=== PATIENT | male | born 1975 | race Caucasian/White ===

== ENCOUNTER 2019-04-30 18:25 | Inpatient (IN) | payer BC, MEDICAID ==
[2019-04-30] MEDS ORDERED: Sodium Chloride 0.9% 1,000 ML IV ONE (18:52)
--- NOTE | 2019-04-30 18:52 | EDM.PDOC ---
ED HPI GENERAL MEDICAL PROBLEM - General Chief Complaint: Abdominal Pain Stated Complaint: ABDOMINAL PAIN AND BACK PAIN Time Seen by Provider: 04/30/19 18:42 Source of Information: Reports: Patient History Limitations: Reports: No Limitations - History of Present Illness INITIAL COMMENTS - FREE TEXT/NARRATIVE: 44-year-old male presents for evaluation and treatment of abdominal pain. Patient reports he had similar episodes about a month ago and about 2 weeks ago after eating. He states that this current episode started yesterday and has been constant since. States that it waxes and wanes a at its worse it is a 10 out of 10. He has tried Pepto-Bismol and docusate but this has not relieved his symptoms. He reports associated symptoms of nausea and vomiting. States that the pain is worse with movement. Reports his last bowel movement was 2 days ago. Reports he is not passing gas. States the pain is radiating through him to his back. He denies any fevers, chest pain, shortness of breath, dysuria or hematuria. No intake in over 24 hours. Reports he's never had a colonoscopy. Previous abdominal surgeries including appendectomy. Upper Abdomen Pain Score (Numeric/FACES): 6 - Related Data Allergies Allergy/AdvReac Type Severity Reaction Status Date / Time hydrocodone Allergy Mild Itching Verified 04/30/19 18:34 Home Meds: Home Meds . [No Known Home Meds] 04/30/19 [History] Past Medical History - Past Surgical History GI Surgical History: Reports: Appendectomy Musculoskeletal Surgical History: Reports: Hip Replacement Social & Family History - Tobacco Use Smoking Status *Q: Never Smoker - Caffeine Use Caffeine Use: Reports: Coffee - Recreational Drug Use Recreational Drug Use: No ED ROS GENERAL - Review of Systems Review Of Systems: See Below Constitutional: Reports: Chills, Diaphoresis. Denies: Fever Respiratory: Denies: Shortness of Breath Cardiovascular: Denies: Chest Pain GI/Abdominal: Reports: Abdominal Pain (greatest in the epigstric but has pain throughtout hte entire abdomen), Constipation (no bowel movement x 2 days), Decreased Appetite, Nausea, Vomiting. Denies: Flatus : Reports: No Symptoms Musculoskeletal: Reports: Back Pain (pain radiates through abdomen to back) ED EXAM, GI/ABD - Physical Exam Exam: See Below Exam Limited By: No Limitations General Appearance: Alert, WD/WN, Mild Distress Throat/Mouth: Normal Inspection, Normal Voice, No Airway Compromise Respiratory/Chest: No Respiratory Distress, Lungs Clear, Normal Breath Sounds Cardiovascular: Normal Peripheral Pulses, Regular Rate, Rhythm, No Murmur GI/Abdominal Exam: Guarding, Rigid, Tender (throughout the entire abdomen), Other (tympanic sounding bowel sounds). No: Rebound Neurological: Alert, Oriented, Normal Cognition Psychiatric: Normal Affect, Normal Mood Skin Exam: Warm, Dry, Normal Color EKG INTERPRETATION EKG Date: 04/30/19 Time: 19:05 Rhythm: NSR Rate (Beats/Min): 73 [place]: Normal P-Wave: Present QRS: Normal ST-T: Normal QT: Normal EKG Interpretation Comments: NSR at 73 bpm. N AVb. NO AE. J-point elevation anterior leads- unlikely ischemia. No T wave inversion. Normal transition. No LAD/ RAD. No LVH/RVh. No IVCD. QTc within normal limits with a QTc of 417. Reviewed by myself and Dr. Jarrett. Course - Vital Signs Last Recorded V/S: Last Vital Signs Temp 98.6 F 04/30/19 22:48 Pulse 59 L 04/30/19 22:48 Resp 16 04/30/19 22:48 BP 131/80 04/30/19 22:48 Pulse Ox 94 L 04/30/19 22:48 - Orders/Labs/Meds Orders: Active Orders 24 hr Category Date Time Status Patient Status [ADT] Routine ADT 04/30/19 22:26 Active Peripheral IV Care [RC] Q2HR Care 04/30/19 18:54 Active Chest 1V-Tube Placement Chk NC [CR] Stat Exams 04/30/19 21:37 Taken UA W/MICROSCOPIC [URIN] Stat Lab 04/30/19 18:54 Ordered Sodium Chloride 0.9% [Saline Flush] Med 04/30/19 18:54 Active 10 ml FLUSH ASDIRECTED PRN Nasogastric Orogastric Tube Insertion [OM.PC] Routine Oth 04/30/19 21:37 Ordered Peripheral IV Insertion Adult [OM.PC] Routine Oth 04/30/19 18:52 Ordered Medication Orders Hydromorphone HCl (Dilaudid) 0.5 mg IVPUSH Q2H PRN PRN Reason: Pain Last Admin: 05/01/19 00:12 Dose: 0.5 mg Dextrose/Lactated Ringer's (Dextrose 5%-Lactated Ringers) 1,000 mls @ 150 mls/ hr IV ASDIRECTED MARISELA Last Admin: 05/01/19 00:16 Dose: 150 mls/hr Ondansetron HCl (Zofran) 4 mg IVPUSH Q4HR PRN PRN Reason: Nausea/Vomiting Sodium Chloride (Saline Flush) 10 ml FLUSH ASDIRECTED PRN PRN Reason: Keep Vein Open Last Admin: 04/30/19 20:39 Dose: 10 ml Admin: 04/30/19 19:18 Dose: 10 ml Labs: Laboratory Tests 04/30/19 04/30/19 Range/Units 18:45 18:45 WBC 15.88 H (4.23-9.07) K/mm3 RBC 5.82 (4.63-6.08) M/mm3 Hgb 17.4 (13.7-17.5) gm/L Hct 51.5 H (40.1-51.0) % MCV 88.5 (79.0-92.2) fl MCH 29.9 (25.7-32.2) pg MCHC 33.8 (32.2-35.5) g/dl RDW Std Deviation 43.2 (35.1-43.9) fL Plt Count 258 (163-337) K/mm3 MPV 10.4 (9.4-12.3) fl Neutrophils % (Manual) 88 H (40-60) % Band Neutrophils % 0 (0-10) % Lymphocytes % (Manual) 9 L (20-40) % Atypical Lymphs % 0 % Monocytes % (Manual) 3 (2-10) % Eosinophils % (Manual) 0 L (0.8-7.0) % Basophils % (Manual) 0 L (0.2-1.2) Platelet Estimate Adequate RBC Morph Comment Normal Sodium 140 (136-145) mEq/L Potassium 4.1 (3.5-5.1) mEq/L Chloride 102 (98-107) mEq/L Carbon Dioxide 29 (21-32) mEq/L Anion Gap 13.1 (5-15) BUN 25 H (7-18) mg/dL Creatinine 1.4 H (0.7-1.3) mg/dL Est Cr Clr Drug Dosing 76.89 mL/min Estimated GFR (MDRD) 55 (>60) mL/min BUN/Creatinine Ratio 17.9 (14-18) Glucose 153 H (74-106) mg/dL Calcium 10.8 H (8.5-10.1) mg/dL Total Bilirubin 0.6 (0.2-1.0) mg/dL AST 14 L (15-37) U/L ALT 31 (16-63) U/L Alkaline Phosphatase 75 (46-116) U/L Troponin I 0.041 (0.00-0.056) ng/mL C-Reactive Protein < 0.2 (<1.0) mg/dL Total Protein 7.8 (6.4-8.2) g/dl Albumin 4.2 (3.4-5.0) g/dl Globulin 3.6 gm/dL Albumin/Globulin Ratio 1.2 (1-2) Lipase 104 (73-393) U/L Meds: Medications Generic Name Dose Route Start Last Admin Trade Name Freq PRN Reason Stop Dose Admin Hydromorphone HCl 0.5 mg 04/30/19 23:14 05/01/19 00:12 Dilaudid IVPUSH 0.5 mg Q2H PRN Administration Pain Dextrose/Lactated Ringer's 1,000 mls @ 150 mls/hr 04/30/19 23:15 05/01/19 00: 16 Dextrose 5%-Lactated Ringers IV 150 mls/hr ASDIRECTED MARISELA Administration Ondansetron HCl 4 mg 04/30/19 23:14 Zofran IVPUSH Q4HR PRN Nausea/Vomiting Sodium Chloride 10 ml 04/30/19 18:54 04/30/19 20:39 Saline Flush FLUSH 10 ml ASDIRECTED PRN Administration Keep Vein Open Discontinued Medications Generic Name Dose Route Start Last Admin Trade Name Freq PRN Reason Stop Dose Admin Diatrizoate Meglum/Diatrizoate Sod 60 ml 04/30/19 19:31 04/30/19 20:39 Gastrografin 37% PO 04/30/19 19:32 60 ml ONETIME ONE Administration Diphenhydramine HCl 25 mg 04/30/19 18:57 04/30/19 19:11 Benadryl IVPUSH 04/30/19 18:58 25 mg ONETIME ONE Administration Hydromorphone HCl 0.5 mg 04/30/19 18:57 04/30/19 19:11 Dilaudid IVPUSH 04/30/19 18:58 0.5 mg ONETIME ONE Administration Hydromorphone HCl 0.5 mg 04/30/19 21:06 04/30/19 21:21 Dilaudid IVPUSH 04/30/19 21:07 0.5 mg ONETIME ONE Administration Sodium Chloride 1,000 mls @ 999 mls/hr 04/30/19 18:52 04/30/19 19:10 Normal Saline IV 04/30/19 19:52 999 mls/hr ONETIME ONE Administration Lactated Ringer's 1,000 mls @ 999 mls/hr 04/30/19 21:06 04/30/19 21:20 Ringers, Lactated IV 04/30/19 22:06 999 mls/hr .BOLUS ONE Administration Iohexol 100 ml 04/30/19 19:31 04/30/19 20:39 Omnipaque-300 IVPUSH 04/30/19 19:32 100 ml ONETIME ONE Administration Ondansetron HCl 4 mg 04/30/19 19:14 04/30/19 19:17 Zofran IVPUSH 04/30/19 19:15 4 mg ONETIME ONE Administration Ondansetron HCl Confirm 04/30/19 19:16 04/30/19 19:26 Zofran Administered 04/30/19 19:17 Not Given Dose 4 mg .ROUTE .STK-MED ONE Ondansetron HCl 4 mg 04/30/19 21:06 04/30/19 21:20 Zofran IVPUSH 04/30/19 21:07 4 mg ONETIME ONE Administration - Radiology Interpretation Free Text/Narrative:: CT abdomen and pelvis Technique: Multiple axial sections were obtained from from above the diaphragm inferiorly through the pubic symphysis. Intravenous and oral contrast was utilized. Delayed images were also obtained through the abdomen and pelvis. Comparison: No prior abdominal imaging. Findings: Mild atelectasis is noted within both lung bases. Small amount of fluid is seen around the liver. Liver contains no focal abnormality. Spleen appears within normal limits. Adrenal glands show no nodule. Pancreas is within normal limits. Kidneys show symmetric contrast enhancement without hydronephrosis or mass. Aorta shows no aneurysm. No retroperitoneal adenopathy is seen. Dilated stomach containing contrast is seen. Dilated jejunal loops are seen. Transition point is within the upper pelvis. Etiology for this small bowel obstruction not seen on this exam. Stool is noted within the distal jejunal loops. Small amount of ascites is also seen within the left side of the abdomen. Gallbladder contains no calcified gallstones. No pelvic mass or adenopathy is seen. Delayed images shows contrast within the ureters and within the bladder. Artifact is noted from left hip prosthesis. Impression: 1. Findings compatible with mid small bowel obstruction within the approximate distal jejunum. Stool is seen within the distal day jejunum. Transition point within the upper pelvis. Etiology for this small bowel obstruction is not seen. 2. Mild amount of ascites likely reactive from the small bowel obstruction. 3. Other incidental findings. - Re-Assessments/Exams Free Text/Narrative Re-Assessment/Exam: 04/30/19 21:07 Checked on patient. Reports his pain is improved, primary parent complains of a bandlike pain across his lower abdomen at this point. He'll has some nausea. He declined anything more for pain and nausea at this time. Awaiting radiology report 04/30/19 22:30 Reviewed the labs and imaging with the patient. Spoke with Dr. Degroot, recommended NG tube, fluids and pain management. Would see in the morning. Asks to admit to Dr. Horne. Spoke with Dr. Horne who agrees to the admission. Zofran 4mg q4 prn nausea, dilaudid 0.5mg iV q2 hrs prn pain, D5/LR at 150 per hour ordered. Departure - Departure Time of Disposition: 22:20 Disposition: Admitted As Inpatient 67 Condition: Fair Clinical Impression: Small bowel obstruction - Discharge Information *PRESCRIPTION DRUG MONITORING PROGRAM REVIEWED*: No *COPY OF PRESCRIPTION DRUG MONITORING REPORT IN PATIENT MARICRUZ: No - My Orders Last 24 Hours: My Active Orders 04/30/19 18:52 Peripheral IV Insertion Adult [OM.PC] Routine 04/30/19 18:54 Peripheral IV Care [RC] Q2HR UA W/MICROSCOPIC [URIN] Stat Sodium Chloride 0.9% [Saline Flush] 10 ml FLUSH ASDIRECTED PRN 04/30/19 21:37 Chest 1V-Tube Placement Chk NC [CR] Stat Nasogastric Orogastric Tube Insertion [OM.PC] Routine 04/30/19 22:26 Patient Status [ADT] Routine - Assessment/Plan Last 24 Hours: My Active Orders 04/30/19 18:52 Peripheral IV Insertion Adult [OM.PC] Routine 04/30/19 18:54 Peripheral IV Care [RC] Q2HR UA W/MICROSCOPIC [URIN] Stat Sodium Chloride 0.9% [Saline Flush] 10 ml FLUSH ASDIRECTED PRN 04/30/19 21:37 Chest 1V-Tube Placement Chk NC [CR] Stat Nasogastric Orogastric Tube Insertion [OM.PC] Routine 04/30/19 22:26 Patient Status [ADT] Routine
[2019-04-30] MEDS ORDERED: diphenhydrAMINE 50 MG/ML SDV IVPUSH ONE (18:57)
[2019-04-30] MEDS ORDERED: HYDROmorphone 0.5 MG/0.5 ML Syringe IVPUSH ONE ×2 (18:57→21:06)
[2019-04-30] MEDS ORDERED: Ondansetron 4 MG/2 ML SDV IVPUSH ONE ×2 (19:14→21:06)
[2019-04-30] MEDS ORDERED: Ondansetron 4 MG/2 ML SDV ONE (19:16)
[2019-04-30] MEDS: Sodium Chloride 0.9% 10 ML Syringe FLUSH PRN ×2 (19:18→20:39)
[2019-04-30] MEDS ORDERED: Diatrizoate Meglumine/Diatrizoate Sodium 37% 120 ML Bottle PO ONE (19:31)
[2019-04-30] MEDS ORDERED: Iohexol 647 MG/ML 100 ML Bottle IVPUSH ONE (19:31)
[2019-04-30] MEDS ORDERED: Lactated Ringers 1,000 ML IV ONE (21:06)
--- NOTE | 2019-04-30 21:07 | CT ---
CT abdomen and pelvis Technique: Multiple axial sections were obtained from from above the diaphragm inferiorly through the pubic symphysis. Intravenous and oral contrast was utilized. Delayed images were also obtained through the abdomen and pelvis. Comparison: No prior abdominal imaging. Findings: Mild atelectasis is noted within both lung bases. Small amount of fluid is seen around the liver. Liver contains no focal abnormality. Spleen appears within normal limits. Adrenal glands show no nodule. Pancreas is within normal limits. Kidneys show symmetric contrast enhancement without hydronephrosis or mass. Aorta shows no aneurysm. No retroperitoneal adenopathy is seen. Dilated stomach containing contrast is seen. Dilated jejunal loops are seen. Transition point is within the upper pelvis. Etiology for this small bowel obstruction not seen on this exam. Stool is noted within the distal jejunal loops. Small amount of ascites is also seen within the left side of the abdomen. Gallbladder contains no calcified gallstones. No pelvic mass or adenopathy is seen. Delayed images shows contrast within the ureters and within the bladder. Artifact is noted from left hip prosthesis. Impression: 1. Findings compatible with mid small bowel obstruction within the approximate distal jejunum. Stool is seen within the distal day jejunum. Transition point within the upper pelvis. Etiology for this small bowel obstruction is not seen. 2. Mild amount of ascites likely reactive from the small bowel obstruction. 3. Other incidental findings. Diagnostic code #5
[2019-04-30] MEDS ORDERED: HYDROmorphone 0.5 MG/0.5 ML Syringe IVPUSH PRN (23:14)
[2019-04-30] MEDS ORDERED: Ondansetron 4 MG/2 ML SDV IVPUSH PRN (23:14)
[2019-05-01] MEDS: Dextrose 5%-Lactated Ringers 1,000 ML IV SCH ×4 (00:16→21:15)
--- NOTE | 2019-05-01 06:19 | PCM.HP ---
H&P History of Present Illness - General Date of Service: 05/01/19 Admit Problem/Dx: Admission Diagnosis/Problem Admission Diagnosis/Problem Small bowel obstruction Source of Information: Patient, Old Records, Provider, RN, RN Notes Reviewed History Limitations: Reports: No Limitations - History of Present Illness Initial Comments - Free Text/Narative: Ben Elder is a 44 yo male who presented to our facility in the evening of 04/30/19 with abdominal pain. Reports he had 2 episodes of similar symptoms with one being about a month ago and the other one 2 weeks ago right after eating. He reports current episode started the day prior has been constant ever since, although it does wax and wane. Maximal pain is 10 out of 10 and it does radiate through to his back. 50s tried Pepto-Bismol and docusate but that has not helped. He's also been nauseous and has vomited. Pain is worse with movement. Reports last bowel movement was 2 days prior he has not been passing gas. denies any fevers, chest pain, short of breath, dysuria, hematuria. Has not had any intake in the past 24 hours. He has had an appendectomy but he has never had a colonoscopy. In the ED temperature 98.6. Pulse 59. Respirations 16. Blood pressure 131/ 80. Pulse ox 94%. EKG is obtained showing a sinus rhythm at 73 bpm. Labs are obtained showing a WBC elevated at 15.88. Hemoglobin 17.4. Hematocrit 51.5. He's normocytic. Platelets 258,000. Neutrophils are elevated at 80%. There is no bandemia. Sodium was 140. Potassium 4.1. Chloride 102. Carbon Dioxide 29. Anion gap is 13.1. BUN is high at 25. Creatinine 1.4. EGFR 55. Glucose is 153. Calcium 10.5. Bilirubin 0.6. AST is 14, ALT 31, alkaline phosphatase 75. Troponin is negative at 0.041. CRP is less than 0.2. Protein is 7.8. Albumin 4.2.CT of the abdomen and pelvis with contrast was obtained and interpreted by Dr. Delacruz as "1. Findings compatible with mid small bowel obstruction within the approximate distal jejunum. Stool is seen within the distal day jejunum. Transition point within the upper pelvis. Etiology for this small bowel obstruction is not seen. 2. Mild amount of ascites likely reactive from the small bowel obstruction. 3. Other incidental findings." he is given Dilaudid0.5 mg IV push for pain and Zofran for nausea. He is also given 5 mg IV push Benadryl. 2 L of fluid are initiated. Dr. Degroot, general surgeon, is consulted in the ED and recommends NG tube, fluids and pain management. NG tube is placed. He subsequently admitted to the medical floor for management of his small bowel obstruction. He carries a history of appendectomy and hip replacement. He is not on any medications. He was never a smoker. His PCP is Dr. Alvarez. He is a DNR/ DNI. Upper Abdomen Pain Score (Numeric/FACES): 6 - Related Data Allergies/Adverse Reactions: Allergies Allergy/AdvReac Type Severity Reaction Status Date / Time hydrocodone Allergy Mild Itching Verified 04/30/19 18:34 Home Medications: Home Meds . [No Known Home Meds] 04/30/19 [History] Past Medical History HEENT History: Reports: None - Infectious Disease History Infectious Disease History: Reports: Chicken Pox - Past Surgical History GI Surgical History: Reports: Appendectomy Musculoskeletal Surgical History: Reports: Hip Replacement Social & Family History - Family History Endocrine/Metabolic: Reports: Diabetes, Type I Other Endocrine/Metabolic Family History: father - Tobacco Use Smoking Status *Q: Never Smoker Second Hand Smoke Exposure: No - Caffeine Use Caffeine Use: Reports: Coffee - Recreational Drug Use Recreational Drug Use: No H&P Review of Systems - Review of Systems: Review Of Systems: See Below General: Reports: Chills, Weakness, Decreased Appetite. Denies: Fever, Malaise , Fatigue HEENT: Reports: No Symptoms. Denies: Headaches, Sore Throat Pulmonary: Reports: No Symptoms. Denies: Shortness of Breath, Wheezing, Cough, Sputum Cardiovascular: Reports: No Symptoms. Denies: Chest Pain, Palpitations, Edema Gastrointestinal: Reports: Abdominal Pain (very mild generalized but most sever in suprapubic region. ), Constipation. Denies: Diarrhea, Flatus, Hematemesis, Hematochezia, Nausea (none since yesterday), Vomiting (none since yesterday) Genitourinary: Reports: No Symptoms. Denies: Pain Musculoskeletal: Reports: No Symptoms Skin: Reports: No Symptoms Psychiatric: Reports: No Symptoms. Denies: Confusion Neurological: Reports: No Symptoms. Denies: Pre-Existing Deficit, Trouble Speaking, Difficulty Walking, Weakness, Gait Disturbance Hematologic/Lymphatic: Reports: No Symptoms Immunologic: Reports: No Symptoms Exam - Exam Exam: See Below - Vital Signs Vital Signs: Last Vital Signs Temp 98.6 F 04/30/19 22:48 Pulse 59 L 04/30/19 22:48 Resp 16 04/30/19 22:48 BP 131/80 04/30/19 22:48 Pulse Ox 94 L 04/30/19 22:48 Weight: 192 lb 11.2 oz - Exam General: Alert, Oriented, Cooperative. No: Mild Distress HEENT: Conjunctiva Clear, EACs Clear, EOMI, Hearing Intact, Mucosa Moist & [place] , Nares Patent, PERRLA Neck: Supple, Trachea Midline Lungs: Clear to Auscultation, Normal Respiratory Effort Cardiovascular: Regular Rate, Regular Rhythm GI/Abdominal Exam: Soft, No Organomegaly, No Distention, Tender (mild suprapubic ), Abnormal Bowel Sounds (hyperactive ). No: Guarding (Male) Exam: Deferred Rectal (Males) Exam: Deferred Back Exam: Normal Inspection, Full Range of Motion Extremities: Normal Inspection, Normal Range of Motion, Non-Tender, No Pedal Edema, Normal Capillary Refill Peripheral Pulses: 2+: Radial (L), Radial (R), Dorsalis Pedis (L), Dorsalis Pedis (R) Skin: Warm, Dry, Intact Neurological: Cranial Nerves Intact (Grossly ) Neuro Extensive - Mental Status: Alert, Oriented x3 - Patient Data Lab Results Last 24 hrs: Laboratory Results - last 24 hr 04/30/19 04/30/19 Range/Units 18:45 18:45 WBC 15.88 H (4.23-9.07) K/mm3 RBC 5.82 (4.63-6.08) M/mm3 Hgb 17.4 (13.7-17.5) gm/L Hct 51.5 H (40.1-51.0) % MCV 88.5 (79.0-92.2) fl MCH 29.9 (25.7-32.2) pg MCHC 33.8 (32.2-35.5) g/dl RDW Std Deviation 43.2 (35.1-43.9) fL Plt Count 258 (163-337) K/mm3 MPV 10.4 (9.4-12.3) fl Neutrophils % (Manual) 88 H (40-60) % Band Neutrophils % 0 (0-10) % Lymphocytes % (Manual) 9 L (20-40) % Atypical Lymphs % 0 % Monocytes % (Manual) 3 (2-10) % Eosinophils % (Manual) 0 L (0.8-7.0) % Basophils % (Manual) 0 L (0.2-1.2) Platelet Estimate Adequate RBC Morph Comment Normal Sodium 140 (136-145) mEq/L Potassium 4.1 (3.5-5.1) mEq/L Chloride 102 (98-107) mEq/L Carbon Dioxide 29 (21-32) mEq/L Anion Gap 13.1 (5-15) BUN 25 H (7-18) mg/dL Creatinine 1.4 H (0.7-1.3) mg/dL Est Cr Clr Drug Dosing 76.89 mL/min Estimated GFR (MDRD) 55 (>60) mL/min BUN/Creatinine Ratio 17.9 (14-18) Glucose 153 H (74-106) mg/dL Calcium 10.8 H (8.5-10.1) mg/dL Total Bilirubin 0.6 (0.2-1.0) mg/dL AST 14 L (15-37) U/L ALT 31 (16-63) U/L Alkaline Phosphatase 75 (46-116) U/L Troponin I 0.041 (0.00-0.056) ng/mL C-Reactive Protein < 0.2 (<1.0) mg/dL Total Protein 7.8 (6.4-8.2) g/dl Albumin 4.2 (3.4-5.0) g/dl Globulin 3.6 gm/dL Albumin/Globulin Ratio 1.2 (1-2) Lipase 104 (73-393) U/L Result Diagrams: 05/01/19 06:30 05/01/19 06:30 - Problem List (1) Small bowel obstruction SNOMED Code(s): 504547271 ICD Code: K56.609 - UNSP INTESTNL OBST, UNSP TO PARTIAL VERSUS COMPLETE OBST Status: Acute Current Visit: Yes Problem List Initiated/Reviewed/Updated: Yes Orders Last 24hrs: Active Orders 24 hr Category Date Time Status Patient Status [ADT] Routine ADT 04/30/19 22:26 Active NG [Gastrointestinal Tube Mgmt] [RC] ASDIRECTED Care 04/30/19 23:14 Active Notify Provider Consults [RC] ASDIRECTED Care 04/30/19 23:22 Active Peripheral IV Care [RC] Q2HR Care 04/30/19 18:54 Active Up ad Sherita [RC] ASDIRECTED Care 04/30/19 23:31 Active Vital Signs [RC] 09,15,21,03 Care 04/30/19 23:43 Active Consult to Physician [CONS] Routine Cons 05/01/19 06:00 Active Nothing Per Oral Diet [DIET] Diet 04/30/19 Dinner Active Chest 1V-Tube Placement Chk NC [CR] Stat Exams 04/30/19 21:37 Taken UA W/MICROSCOPIC [URIN] Stat Lab 04/30/19 18:54 Ordered Dextrose 5%-Lactated Ringers 1,000 ml Med 04/30/19 23:15 Active IV ASDIRECTED HYDROmorphone [Dilaudid] Med 04/30/19 23:14 Active 0.5 mg IVPUSH Q2H PRN Ondansetron [Zofran] Med 04/30/19 23:14 Active 4 mg IVPUSH Q4HR PRN Sodium Chloride 0.9% [Saline Flush] Med 04/30/19 18:54 Active 10 ml FLUSH ASDIRECTED PRN Nasogastric Orogastric Tube Insertion [OM.PC] Routine Oth 04/30/19 21:37 Ordered Peripheral IV Insertion Adult [OM.PC] Routine Oth 04/30/19 18:52 Ordered Code Status [Resuscitation Status] Routine Resus Stat 04/30/19 23:06 Ordered Medication Orders Hydromorphone HCl (Dilaudid) 0.5 mg IVPUSH Q2H PRN PRN Reason: Pain Last Admin: 05/01/19 00:12 Dose: 0.5 mg Dextrose/Lactated Ringer's (Dextrose 5%-Lactated Ringers) 1,000 mls @ 150 mls/ hr IV ASDIRECTED MARISELA Last Admin: 05/01/19 00:16 Dose: 150 mls/hr Ondansetron HCl (Zofran) 4 mg IVPUSH Q4HR PRN PRN Reason: Nausea/Vomiting Sodium Chloride (Saline Flush) 10 ml FLUSH ASDIRECTED PRN PRN Reason: Keep Vein Open Last Admin: 04/30/19 20:39 Dose: 10 ml Admin: 04/30/19 19:18 Dose: 10 ml Assessment/Plan Comment:: I/P: Acute: SBO -Reports pain that started day before coming to ED, nausea, vomiting, anorexia, constipation -Two prior episodes - one month prior and two weeks prior; both spontaneously resolved -Hx/o appendectomy; No prior colonoscopy -WBC 15.88-->11.28 -CRP >0.2 -CT scan in ED: * 1. Findings compatible with mid small bowel obstruction within the approximate distal jejunum. Stool is seen within the distal day jejunum. Transition point within the upper pelvis. Etiology for this small bowel obstruction is not seen. * 2. Mild amount of ascites likely reactive from the small bowel obstruction. * 3. Other incidental findings. -NG tube placed in ED -Dr. Degroot, general surgeon consulted in ED -Recommends removing NG tube in afternoon and advancing diet to clear liquids -Believes leukocytosis may be from dehydration -IV fluids as ordered -Pain medications as ordered -NPO until NG tube removed -Ambulate -Antiemetics for nausea Chronic: Hx/o Appendectomy Hx/o Hip replacement Plan: Admit to medical floor Other orders as indicated above Routine AM labs He is ambulatory so will hold off PT/OT for now DVT Prophylaxis: VTE score of 1 - ambulate Up add sherita Code status: DNR/DNI; PCP: Dr. Alvarez
--- NOTE | 2019-05-01 06:47 | CR ---
Chest: Frontal view of the chest was obtained. Comparison: No prior chest x-ray. Heart size and mediastinum are normal. Lungs are clear. No tubing seen to extend into the mediastinum. Small bowel obstruction is again seen. Bony structures are grossly intact. Impression: 1. No nasogastric tube is seen to extend into the mediastinum. 2. Small bowel obstruction seen within the abdomen. 3. Nothing acute seen on frontal chest x-ray. Diagnostic code #2
--- NOTE | 2019-05-01 07:20 | PCM.CONS ---
H&P History of Present Illness - General Date of Service: 05/01/19 Admit Problem/Dx: Admission Diagnosis/Problem Admission Diagnosis/Problem Small bowel obstruction Source of Information: Patient, Provider History Limitations: Reports: No Limitations - History of Present Illness Initial Comments - Free Text/Narative: The patient is a 44 y/o gentleman who presented to the ED and was diagnosed with a SBO. He reports abdominal pain that occurred 2 days ago, associated with vomiting initially. He felt generalized weakness and a subjective fever. He also reports feeling dehydrated. He had a subjective fever yesterday. Last bowel movement was 2 days ago and he denied any flatus leading up to his hospitalization. He denies any sick contacts. He denies currently having an appetite. In the ED he had laboratory evaluation and CT scan of the abdomen, which revealed elevated WBC and elevated creatinine. He had an NGT placed which immediately evacuated approximately 900cc of fluid. He has since had scant output from the NGT. He reports flatus this am. Upper Abdomen Pain Score (Numeric/FACES): 6 - Related Data Allergies/Adverse Reactions: Allergies Allergy/AdvReac Type Severity Reaction Status Date / Time hydrocodone Allergy Mild Itching Verified 04/30/19 18:34 Home Medications: Home Meds . [No Known Home Meds] 04/30/19 [History] Past Medical History HEENT History: Reports: None - Infectious Disease History Infectious Disease History: Reports: Chicken Pox - Past Surgical History GI Surgical History: Reports: Appendectomy Musculoskeletal Surgical History: Reports: Hip Replacement Social & Family History - Family History Endocrine/Metabolic: Reports: Diabetes, Type I Other Endocrine/Metabolic Family History: father - Tobacco Use Smoking Status *Q: Never Smoker Second Hand Smoke Exposure: No - Caffeine Use Caffeine Use: Reports: Coffee - Recreational Drug Use Recreational Drug Use: No H&P Review of Systems - Review of Systems: Review Of Systems: See Below General: Reports: Fever (subjective), Malaise, Weakness, Decreased Appetite HEENT: Reports: No Symptoms, Sinus Congestion Cardiovascular: Reports: No Symptoms Gastrointestinal: Reports: Abdominal Pain, Nausea, Vomiting Genitourinary: Reports: No Symptoms Musculoskeletal: Reports: No Symptoms Skin: Reports: No Symptoms Neurological: Reports: No Symptoms Hematologic/Lymphatic: Reports: No Symptoms Exam - Exam Exam: See Below - Vital Signs Vital Signs: Last Vital Signs Temp 37.0 C 04/30/19 22:48 Pulse 59 L 04/30/19 22:48 Resp 16 04/30/19 22:48 BP 131/80 04/30/19 22:48 Pulse Ox 94 L 04/30/19 22:48 Weight: 87.407 kg - Exam Quality Assessment: No: Supplemental Oxygen General: Alert, Oriented HEENT: Conjunctiva Clear, EOMI, Other (NGT in right nare) Neck: Supple Lungs: Clear to Auscultation, Normal Respiratory Effort Cardiovascular: Regular Rate, Regular Rhythm GI/Abdominal Exam: Soft, No Distention, Tender (in LUQ and hypogastric area) Extremities: Normal Inspection, No Pedal Edema Peripheral Pulses: 2+: Dorsalis Pedis (L), Dorsalis Pedis (R) Skin: Warm, Dry, Intact Neurological: Cranial Nerves Intact Neuro Extensive - Mental Status: Alert, Oriented x3, Normal Mood/Affect - Patient Data Lab Results Last 24 hrs: Laboratory Results - last 24 hr 04/30/19 04/30/19 04/30/19 Range/Units 06:35 18:45 18:45 WBC 15.88 H (4.23-9.07) K/mm3 RBC 5.82 (4.63-6.08) M/mm3 Hgb 17.4 (13.7-17.5) gm/L Hct 51.5 H (40.1-51.0) % MCV 88.5 (79.0-92.2) fl MCH 29.9 (25.7-32.2) pg MCHC 33.8 (32.2-35.5) g/dl RDW Std Deviation 43.2 (35.1-43.9) fL Plt Count 258 (163-337) K/mm3 MPV 10.4 (9.4-12.3) fl Neut % (Auto) (34.0-67.9) % Lymph % (Auto) (21.8-53.1) % [place] % (Auto) (5.3-12.2) % Eos % (Auto) (0.8-7.0) Baso % (Auto) (0.1-1.2) % Neut # (Auto) (1.78-5.38) K/mm3 Lymph # (Auto) (1.32-3.57) K/mm3 [place] # (Auto) (0.30-0.82) K/mm3 Eos # (Auto) (0.04-0.54) K/mm3 Baso # (Auto) (0.01-0.08) K/mm3 Neutrophils % (Manual) 88 H (40-60) % Band Neutrophils % 0 (0-10) % Lymphocytes % (Manual) 9 L (20-40) % Atypical Lymphs % 0 % Monocytes % (Manual) 3 (2-10) % Eosinophils % (Manual) 0 L (0.8-7.0) % Basophils % (Manual) 0 L (0.2-1.2) Platelet Estimate Adequate RBC Morph Comment Normal Sodium 140 (136-145) mEq/L Potassium 4.1 (3.5-5.1) mEq/L Chloride 102 (98-107) mEq/L Carbon Dioxide 29 (21-32) mEq/L Anion Gap 13.1 (5-15) BUN 25 H (7-18) mg/dL Creatinine 1.4 H (0.7-1.3) mg/dL Est Cr Clr Drug Dosing 76.89 mL/min Estimated GFR (MDRD) 55 (>60) mL/min BUN/Creatinine Ratio 17.9 (14-18) Glucose 153 H (74-106) mg/dL Calcium 10.8 H (8.5-10.1) mg/dL Magnesium (1.8-2.4) mg/dl Total Bilirubin 0.6 (0.2-1.0) mg/dL AST 14 L (15-37) U/L ALT 31 (16-63) U/L Alkaline Phosphatase 75 (46-116) U/L Troponin I 0.041 (0.00-0.056) ng/mL C-Reactive Protein < 0.2 (<1.0) mg/dL Total Protein 7.8 (6.4-8.2) g/dl Albumin 4.2 (3.4-5.0) g/dl Globulin 3.6 gm/dL Albumin/Globulin Ratio 1.2 (1-2) Lipase 104 (73-393) U/L Urine Color Yellow (Yellow) Urine Appearance Clear (Clear) Urine pH 6.0 (5.0-8.0) Ur Specific [place] 1.025 (1.005-1.030) Urine Protein 1+ H (Negative) Urine Glucose (UA) Negative (Negative) Urine Ketones Negative (Negative) Urine Occult Blood Negative (Negative) Urine Nitrite Negative (Negative) Urine Bilirubin 1+ H (Negative) Urine Urobilinogen 0.2 (0.2-1.0) Ur Leukocyte Esterase Negative (Negative) Urine RBC Not seen (0-5) /hpf Urine WBC Not seen (0-5) /hpf Ur Squamous Epith Cells Not seen (0-5) /hpf Urine Bacteria Not seen (FEW) /hpf Urine Mucus Not seen (FEW) /hpf 05/01/19 05/01/19 Range/Units 06:30 06:30 WBC 11.28 H (4.23-9.07) K/mm3 RBC 4.83 (4.63-6.08) M/mm3 Hgb 14.5 D (13.7-17.5) gm/L Hct 43.8 (40.1-51.0) % MCV 90.7 (79.0-92.2) fl MCH 30.0 (25.7-32.2) pg MCHC 33.1 (32.2-35.5) g/dl RDW Std Deviation 44.8 H (35.1-43.9) fL Plt Count 202 (163-337) K/mm3 MPV 10.1 (9.4-12.3) fl Neut % (Auto) 75.3 H (34.0-67.9) % Lymph % (Auto) 14.5 L (21.8-53.1) % [place] % (Auto) 8.2 (5.3-12.2) % Eos % (Auto) 1.5 (0.8-7.0) Baso % (Auto) 0.4 (0.1-1.2) % Neut # (Auto) 8.50 H (1.78-5.38) K/mm3 Lymph # (Auto) 1.63 (1.32-3.57) K/mm3 [place] # (Auto) 0.93 H (0.30-0.82) K/mm3 Eos # (Auto) 0.17 (0.04-0.54) K/mm3 Baso # (Auto) 0.04 (0.01-0.08) K/mm3 Neutrophils % (Manual) (40-60) % Band Neutrophils % (0-10) % Lymphocytes % (Manual) (20-40) % Atypical Lymphs % % Monocytes % (Manual) (2-10) % Eosinophils % (Manual) (0.8-7.0) % Basophils % (Manual) (0.2-1.2) Platelet Estimate RBC Morph Comment Sodium 140 (136-145) mEq/L Potassium 4.2 (3.5-5.1) mEq/L Chloride 105 (98-107) mEq/L Carbon Dioxide 28 (21-32) mEq/L Anion Gap 11.2 (5-15) BUN 19 H (7-18) mg/dL Creatinine 1.0 (0.7-1.3) mg/dL Est Cr Clr Drug Dosing 107.64 mL/min Estimated GFR (MDRD) > 60 (>60) mL/min BUN/Creatinine Ratio 19.0 H (14-18) Glucose 121 H (74-106) mg/dL Calcium 8.7 D (8.5-10.1) mg/dL Magnesium 1.8 (1.8-2.4) mg/dl Total Bilirubin (0.2-1.0) mg/dL AST (15-37) U/L ALT (16-63) U/L Alkaline Phosphatase (46-116) U/L Troponin I (0.00-0.056) ng/mL C-Reactive Protein (<1.0) mg/dL Total Protein (6.4-8.2) g/dl Albumin (3.4-5.0) g/dl Globulin gm/dL Albumin/Globulin Ratio (1-2) Lipase (73-393) U/L Urine Color (Yellow) Urine Appearance (Clear) Urine pH (5.0-8.0) Ur Specific [place] (1.005-1.030) Urine Protein (Negative) Urine Glucose (UA) (Negative) Urine Ketones (Negative) Urine Occult Blood (Negative) Urine Nitrite (Negative) Urine Bilirubin (Negative) Urine Urobilinogen (0.2-1.0) Ur Leukocyte Esterase (Negative) Urine RBC (0-5) /hpf Urine WBC (0-5) /hpf Ur Squamous Epith Cells (0-5) /hpf Urine Bacteria (FEW) /hpf Urine Mucus (FEW) /hpf Result Diagrams: 05/01/19 06:30 05/01/19 06:30 Consult PN Assessment/Plan (1) Small bowel obstruction SNOMED Code(s): 294747727 Code(s): K56.609 - UNSP INTESTNL OBST, UNSP TO PARTIAL VERSUS COMPLETE OBST Current Visit: Yes Problem List Initiated/Reviewed/Updated: Yes My Orders Last 24 Hours: 44 y/o gentleman with SBO, likely due to adhesive disease. SBO resolving - continue NGT decompression for a few more hours until pt subjectively feels better - encourage ambulation - may consider d/c NGT this afternoon with trial of clears. May advance diet thereafter - IVF until taking adequate PO - patient may need early colonoscopy if he has a repeated episode of SBO No current surgical indication and patient is improving. Will sign off. Please call with any worrisome change in patient condition or new surgical complaint. Erin Mann MD General surgery
[2019-05-02] MEDS: Dextrose 5%-Lactated Ringers 1,000 ML IV SCH (05:20)
[2019-05-02] MEDS ORDERED: Magnesium Oxide 400 MG Tab PO ONE (10:26)
--- NOTE | 2019-05-02 11:19 | PCM.DCSUM1 ---
Discharge Summary - Hospital Course Free Text/Narrative:: Ben Elder is a 44 yo male who presented to our facility in the evening of 04/30/19 with abdominal pain. Reports he had 2 episodes of similar symptoms with one being about a month ago and the other one 2 weeks ago right after eating. He reports current episode started the day prior has been constant ever since, although it does wax and wane. Maximal pain is 10 out of 10 and it does radiate through to his back. 50s tried Pepto-Bismol and docusate but that has not helped. He's also been nauseous and has vomited. Pain is worse with movement. Reports last bowel movement was 2 days prior he has not been passing gas. denies any fevers, chest pain, short of breath, dysuria, hematuria. Has not had any intake in the past 24 hours. He has had an appendectomy but he has never had a colonoscopy. In the ED temperature 98.6. Pulse 59. Respirations 16. Blood pressure 131/ 80. Pulse ox 94%. EKG is obtained showing a sinus rhythm at 73 bpm. Labs are obtained showing a WBC elevated at 15.88. Hemoglobin 17.4. Hematocrit 51.5. He's normocytic. Platelets 258,000. Neutrophils are elevated at 80%. There is no bandemia. Sodium was 140. Potassium 4.1. Chloride 102. Carbon Dioxide 29. Anion gap is 13.1. BUN is high at 25. Creatinine 1.4. EGFR 55. Glucose is 153. Calcium 10.5. Bilirubin 0.6. AST is 14, ALT 31, alkaline phosphatase 75. Troponin is negative at 0.041. CRP is less than 0.2. Protein is 7.8. Albumin 4.2.CT of the abdomen and pelvis with contrast was obtained and interpreted by Dr. Delacruz as "1. Findings compatible with mid small bowel obstruction within the approximate distal jejunum. Stool is seen within the distal day jejunum. Transition point within the upper pelvis. Etiology for this small bowel obstruction is not seen. 2. Mild amount of ascites likely reactive from the small bowel obstruction. 3. Other incidental findings." he is given Dilaudid0.5 mg IV push for pain and Zofran for nausea. He is also given 5 mg IV push Benadryl. 2 L of fluid are initiated. Dr. Degroot, general surgeon, is consulted in the ED and recommends NG tube, fluids and pain management. NG tube is placed. He subsequently admitted to the medical floor for management of his small bowel obstruction. He carries a history of appendectomy and hip replacement. He is not on any medications. He was never a smoker. His PCP is Dr. Alvarez. 05/02/2019, no pain, tolerates regular diet, beig discharged in good condition with recommendations in the instructions section. Diagnosis: Stroke: No - Discharge Data Discharge Date: 05/02/19 Discharge Disposition: Home, Self-Care 01 Condition: Good - Discharge Diagnosis/Problem(s) (1) Small bowel obstruction SNOMED Code(s): 086485649 ICD Code: K56.609 - UNSP INTESTNL OBST, UNSP TO PARTIAL VERSUS COMPLETE OBST Status: Acute Current Visit: Yes - Patient Summary/Data Consults: Consultations 05/01/19 06:00 Consult to Physician [CONS] Routine - Discharge Plan *PRESCRIPTION DRUG MONITORING PROGRAM REVIEWED*: No *COPY OF PRESCRIPTION DRUG MONITORING REPORT IN PATIENT MARICRUZ: No Home Medications: Home Meds . [No Known Home Meds] 04/30/19 [History] Forms: ED Department Discharge Referrals: Francois Alvarez MD [Primary Care Provider] - - Discharge Summary/Plan Comment DC Time >30 min.: No - Patient Data Vitals - Most Recent: Last Vital Signs Temp 98.6 F 05/02/19 04:43 Pulse 53 L 05/02/19 04:43 Resp 16 05/02/19 04:43 BP 115/84 05/02/19 04:43 Pulse Ox 97 05/02/19 04:43 Weight - Most Recent: 196 lb 1.6 oz I&O - Last 24 hours: Intake & Output 05/01/19 05/02/19 05/02/19 19:59 03:59 11:59 Intake Total 2920 2572 Output Total 1300 450 Balance 1620 2122 Lab Results - Last 24 hrs: Laboratory Results - last 24 hr 05/02/19 05/02/19 Range/Units 04:40 04:40 WBC 5.33 (4.23-9.07) K/mm3 RBC 4.31 L (4.63-6.08) M/mm3 Hgb 12.8 L D (13.7-17.5) gm/L Hct 39.6 L (40.1-51.0) % MCV 91.9 (79.0-92.2) fl MCH 29.7 (25.7-32.2) pg MCHC 32.3 (32.2-35.5) g/dl RDW Std Deviation 42.8 (35.1-43.9) fL Plt Count 155 L (163-337) K/mm3 MPV 10.4 (9.4-12.3) fl Neut % (Auto) 52.9 (34.0-67.9) % Lymph % (Auto) 31.1 (21.8-53.1) % [place] % (Auto) 8.6 (5.3-12.2) % Eos % (Auto) 6.4 (0.8-7.0) Baso % (Auto) 0.8 (0.1-1.2) % Neut # (Auto) 2.82 (1.78-5.38) K/mm3 Lymph # (Auto) 1.66 (1.32-3.57) K/mm3 [place] # (Auto) 0.46 (0.30-0.82) K/mm3 Eos # (Auto) 0.34 (0.04-0.54) K/mm3 Baso # (Auto) 0.04 (0.01-0.08) K/mm3 Sodium 140 (136-145) mEq/L Potassium 4.3 (3.5-5.1) mEq/L Chloride 105 (98-107) mEq/L Carbon Dioxide 30 (21-32) mEq/L Anion Gap 9.3 (5-15) BUN 13 (7-18) mg/dL Creatinine 0.9 (0.7-1.3) mg/dL Est Cr Clr Drug Dosing 119.60 mL/min Estimated GFR (MDRD) > 60 (>60) mL/min BUN/Creatinine Ratio 14.4 (14-18) Glucose 101 (74-106) mg/dL Calcium 8.4 L (8.5-10.1) mg/dL Magnesium 1.7 L (1.8-2.4) mg/dl Med Orders - Current: Current Medications Hydromorphone HCl (Dilaudid) 0.5 mg IVPUSH Q2H PRN PRN Reason: Pain Last Admin: 05/01/19 00:12 Dose: 0.5 mg Ondansetron HCl (Zofran) 4 mg IVPUSH Q4HR PRN PRN Reason: Nausea/Vomiting Sodium Chloride (Saline Flush) 10 ml FLUSH ASDIRECTED PRN PRN Reason: Keep Vein Open Last Admin: 04/30/19 20:39 Dose: 10 ml Discontinued Medications Diatrizoate Meglum/Diatrizoate Sod (Gastrografin 37%) 60 ml PO ONETIME ONE Stop: 04/30/19 19:32 Last Admin: 04/30/19 20:39 Dose: 60 ml Diphenhydramine HCl (Benadryl) 25 mg IVPUSH ONETIME ONE Stop: 04/30/19 18:58 Last Admin: 04/30/19 19:11 Dose: 25 mg Hydromorphone HCl (Dilaudid) 0.5 mg IVPUSH ONETIME ONE Stop: 04/30/19 18:58 Last Admin: 04/30/19 19:11 Dose: 0.5 mg Hydromorphone HCl (Dilaudid) 0.5 mg IVPUSH ONETIME ONE Stop: 04/30/19 21:07 Last Admin: 04/30/19 21:21 Dose: 0.5 mg Sodium Chloride (Normal Saline) 1,000 mls @ 999 mls/hr IV ONETIME ONE Stop: 04/30/19 19:52 Last Admin: 04/30/19 19:10 Dose: 999 mls/hr Lactated Ringer's (Ringers, Lactated) 1,000 mls @ 999 mls/hr IV .BOLUS ONE Stop: 04/30/19 22:06 Last Admin: 04/30/19 21:20 Dose: 999 mls/hr Dextrose/Lactated Ringer's (Dextrose 5%-Lactated Ringers) 1,000 mls @ 150 mls/ hr IV ASDIRECTED MARISELA Last Admin: 05/02/19 05:20 Dose: 150 mls/hr Iohexol (Omnipaque-300) 100 ml IVPUSH ONETIME ONE Stop: 04/30/19 19:32 Last Admin: 04/30/19 20:39 Dose: 100 ml Magnesium Oxide (Magnesium Oxide) 400 mg PO ONETIME ONE Stop: 05/02/19 10:27 Last Admin: 05/02/19 11:00 Dose: 400 mg Ondansetron HCl (Zofran) 4 mg IVPUSH ONETIME ONE Stop: 04/30/19 19:15 Last Admin: 04/30/19 19:17 Dose: 4 mg Ondansetron HCl (Zofran) Confirm Administered Dose 4 mg .ROUTE .STK-MED ONE Stop: 04/30/19 19:17 Last Admin: 04/30/19 19:26 Dose: Not Given Ondansetron HCl (Zofran) 4 mg IVPUSH ONETIME ONE Stop: 04/30/19 21:07 Last Admin: 04/30/19 21:20 Dose: 4 mg - Exam Physical Findings Comments:: General: Alert, Oriented, Cooperative. No: Mild Distress HEENT: Conjunctiva Clear, EACs Clear, EOMI, Hearing Intact, Mucosa Moist & [place] , Nares Patent, PERRLA Neck: Supple, Trachea Midline Lungs: Clear to Auscultation, Normal Respiratory Effort Cardiovascular: Regular Rate, Regular Rhythm GI/Abdominal Exam: Soft, No Organomegaly, No Distention, Non Tender, Abnormal Bowel Sounds normoactive ). No: Guarding (Male) Exam: Deferred Rectal (Males) Exam: Deferred Back Exam: Normal Inspection, Full Range of Motion Extremities: Normal Inspection, Normal Range of Motion, Non-Tender, No Pedal Edema, Normal Capillary Refill Peripheral Pulses: 2+: Radial (L), Radial (R), Dorsalis Pedis (L), Dorsalis Pedis (R) Skin: Warm, Dry, Intact Neurological: Cranial Nerves Intact (Grossly ) Neuro Extensive - Mental Status: Alert, Oriented x3
== END 2019-05-02 13:45 | disposition home or self-care (01) | DRG 247 ==
LOC: JD.ED 18:25 → JD.MS 22:29
PROVIDERS: ADMIT Family Medicine; ATTEND Family Medicine
PROC: 0D9670Z Drainage of Stomach with Drainage Device, Via Natural or Artificial Opening (ICD-10-PCS; principal; 2019-04-30)
DX: K56.50 Intestinal adhesions [bands], unspecified as to partial versus complete obstruction (principal); Z96.649 Presence of unspecified artificial hip joint; Z66 Do not resuscitate; Z88.5 Allergy status to narcotic agent
CPT/HCPCS: 36415; 74177; 74177-26; 80048; 80053; 81001; 83690; 83735; 84484; 85007; 85025; 85027; 86140; 93005; 93010; 96361; 96374; 96375; 96376; 99284; 99285-25; A9270-GY; J1170; J1200; J2405; J7040; J7042; J7120; Q9963; Q9967